=== PATIENT | female | born 1965 | race Caucasian/White ===

== ENCOUNTER 2016-11-23 04:04 | Emergency (ER) ==
[2016-11-23 04:31] LABS: MANUAL DIFF NEEDED? NO
[2016-11-23 04:34] LABS: BASO% 0.9 % (0.0-0.8); EOS# 0.29 X1000 (0.0-0.7); EOS% 3.9 % (0.0-10.0); HEMATOCRIT 49.3 % (37.0-47.0); HEMOGLOBIN 16.7 g/dL (12.0-16.0); IMM GRAN# 0.04 X1000 (0.0-0.04); IMM GRAN% 0.5 % (0.0-0.5); LYMPH# 2.92 X1000 (1.2-3.4); LYMPH% 38.8 % (20.5-51.1); MCH 32.6 PG (27-31); MCHC 33.9 g/dL (33-37); MCV 96.3 FL (81-99); MONO# 0.84 X1000 (0.11-0.59); MONO% 11.2 % (1.7-9.3); NEUT% 44.7 % (42.2-75.2); PLT 199 X1000 (130-400); RBC 5.12 XMIL (4.2-5.4)
[2016-11-23 04:49] LABS: URINE MICRO REVIEW NEEDED? NO; URINE SOURCE CLEAN CATCH
[2016-11-23 04:51] LABS: ACETAMINOPHEN < 1.2 ug/mL (10-30); AGAP 18; ALBUMIN 4.3 g/dL (3.5-5.0); ALKALINE PHOSPHATASE 124 U/L (32-104); BUN 6 mg/dL (8-22); CALCIUM 9.5 mg/dL (8.8-10.2); CHLORIDE 96 mmol/L (98-107); COSMO 273; GOT 82 U/L (10-30); GPT 72 U/L (10-36); POTASSIUM 4.1 mmol/L (3.5-5.1); SODIUM 137 mmol/L (136-145); TCO2 23 mmol/L (25-35); TOTAL BILIRUBIN 0.66 mg/dL (0.20-1.00); TOTAL PROTEIN 7.5 g/dL (6.3-8.3)
[2016-11-23 04:53] LABS: BILIRUBIN URINE NEGATIVE (NEGATIVE); BLOOD URINE NEGATIVE (NEGATIVE); GLUCOSE URINE NEGATIVE (NEGATIVE); LEUKOCYTES URINE MODERATE (NEGATIVE); NITRITE URINE NEGATIVE (NEGATIVE); PROTEIN URINE NEGATIVE (NEGATIVE); UROBILINOGEN URINE NORMAL (NORMAL)
[2016-11-23 05:01] LABS: UR AMPHETAMINES QUAL NONE DETECTED (NONE DETECT); UR BARBITUATES QUAL NONE DETECTED (NONE DETECT); UR BENZODIAZEPIN QUAL NONE DETECTED (NONE DETECT); UR CANNABINOIDS QUAL NONE DETECTED (NONE DETECT); UR COCAINE QUAL NONE DETECTED (NONE DETECT); UR METHADONE QUAL NONE DETECTED (NONE DETECT); UR OPIATES QUAL NONE DETECTED (NONE DETECT); UR OXYCODONE QUAL NONE DETECTED (NONE DETECT); UR PCP QUAL NONE DETECTED (NONE DETECT)
[2016-11-23] MEDS ORDERED: ATIVAN PO ONE (05:04)
[2016-11-23] MEDS ORDERED: NICODERM PATCH TD ONE (05:04)
[2016-11-23 05:06] LABS: COLOR YELLOW; SP GRAVITY URINE 1.004; TURBIDITY URINE CLEAR (CLEAR); UR EPITHELIAL CELLS <10 /HPF (<10); URINE BACTERIA 2+ /HPF; URINE CULTURE NEEDED? YES; URINE RBC <10 /HPF (<10)
--- NOTE | 2016-11-23 05:08 | PROVIDER DOCUMENTATION ---
HPI-Psychological Disorder - General Source: patient <Mike Schumacher - Last Filed: 11/23/16 05:04> <Praveen Barber - Last Filed: 11/23/16 14:56> - General Chief Complaint: Psych Stated Complaint: depression Time Seen by Provider: 11/23/16 04:06 Allergies/Adverse Reactions: Patient Allergies Allergy/AdvReac Type Severity Reaction Status Date / Time Penicillins Allergy Intermediate ITCHING Verified 11/23/16 04:40 morphine AdvReac Mild NAUSEA/VOMI Verified 11/23/16 04:40 TING Home Medications: Home Medication List Medication Instructions Recorded Confirmed Last Taken Type No Home Medications 11/23/16 11/23/16 Unknown History - History of Present Illness-Psych Nature of Presenting Problem: pt has been feeliing depressed and expressed suicidal ideation when she called a suicide hotline earlier [facility]. She admits to drinking three 40 OZ beers daily. She states she has had a hx of depression since 2002. (Mike Schumacher) Review of Systems - Adult - REVIEW OF SYSTEMS - ADULT Constitutional: denies: chills, fever Eyes: denies: discharge Ears, Nose, Mouth & Throat: denies: ear pain, sinus problem, throat pain Cardiovascular: denies: chest pain, edema, palpitations Respiratory: denies: cough, shortness of breath, wheezing Gastrointestinal: denies: abdominal pain, diarrhea, nausea, vomiting Genitourinary: denies: dysuria, frequency Musculoskeletal: reports: back pain (low back) Integumentary: denies: rash Neurological: denies: headache/migraines, numbness Psychiatric: reports: see HPI Endocrine: reports: no symptoms reported Hematologic/Lymphatic: reports: no symptoms reported Allergic/Immunologic: reports: no symptoms reported All Other Systems: Reviewed and Negative <Mike Schumacher - Last Filed: 11/23/16 05:04> - REVIEW OF SYSTEMS - ADULT Constitutional: denies: chills, fever Eyes: denies: discharge, blurred vision Ears, Nose, Mouth & Throat: denies: ear discharge, sinus problem, throat swelling Cardiovascular: denies: chest pain, irregular heart rate, PND Respiratory: denies: chronic cough, cough, shortness of breath Gastrointestinal: denies: abdominal pain, constipation, diarrhea, nausea, vomiting Genitourinary: denies: discharge, frequent UTI's Musculoskeletal: denies: bone pain, joint swelling Integumentary: denies: hives, itching, rash Neurological: denies: numbness, seizure, tremors Psychiatric: reports: anti-depressant use, alcohol/drug dependence, suicidal thoughts Endocrine: denies: goiter, cold intolerance, heat intolerance Hematologic/Lymphatic: denies: low blood count, lymphedema Allergic/Immunologic: denies: eczema, frequent infections, hives <Praveen Barber - Last Filed: 11/23/16 14:56> Past History - Adult - PAST MEDICAL HISTORY-ADULT Review of Records: reports: Old Records Reviewed, Nursing Assessment Review, Medications Reviewed, Social history reviewed & non-contributory. - FAMILY HISTORY Family History: reviewed, not pertinent - SOCIAL HISTORY Smoking: greater than 1 pack/day Substance Use: alcohol Alcohol Use Frequency: every day Living Situation: family <Mike Schumacher - Last Filed: 11/23/16 05:04> - PAST MEDICAL HISTORY-ADULT Review of Records: reports: Nursing Assessment Review, Medications Reviewed <Praveen Barber - Last Filed: 11/23/16 14:56> Physical Exam-Psych Focus - Physical Exam-Psych Initial Vital Signs Reviewed: Yes Appearance: appropriate appearance, appropriate insight, neat, no apparent distress, no memory impairment, alert Neurological: alert, normal mood/affect, calm, etcher enameling II-XII nml as tested, oriented x 3 Behavior/Eye Contact/Speech: cooperative, good eye contact, normal speech Thoughts/Hallucinations: normal thought pattern, no apparent hallucination HENMT: normocephalic/atraumatic, pharynx normal Neck: non-tender, full range of motion, supple, normal inspection Respiratory: chest non-tender, lungs clear, normal breath sounds, no pleuratic chest pain, no respiratory distress, no accessory muscle use Cardiovascular: regular rate, rhythm, no edema, no murmur Abdominal Exam: normal bowel sounds, non tender, soft, no organomegaly, no pulsatile mass Back Exam: normal inspection, no CVA tenderness, no vertebral tenderness Extremity: non-tender, no pedal edema, no calf tenderness Integumentary: normal color, normal turgor, warm/dry <Mike Schumacher - Last Filed: 11/23/16 05:04> - Physical Exam-Psych Initial Vital Signs Reviewed: Yes Appearance: appropriate appearance, appropriate insight, neat, no apparent distress, no memory impairment, denies illness, alert, anxious Neurological: alert, normal mood/affect, calm, etcher enameling II-XII nml as tested, oriented x 3 Behavior/Eye Contact/Speech: cooperative, good eye contact, normal speech Thoughts/Hallucinations: normal thought pattern, no apparent hallucination HENMT: normocephalic/atraumatic, moist mucous membranes, normal ENT inspection Neck: non-tender, full range of motion, supple, normal inspection Respiratory: chest non-tender, lungs clear, normal breath sounds, no pleuratic chest pain, no respiratory distress, no accessory muscle use Cardiovascular: normal peripheral pulses, regular rate, rhythm, no edema, no gallop, no JVD, no murmur Abdominal Exam: normal bowel sounds, non tender, soft, no organomegaly, no pulsatile mass Lymphatic: no adenopathy Back Exam: normal inspection, no CVA tenderness, no vertebral tenderness Extremity: normal range of motion, non-tender <Praveen Barber - Last Filed: 11/23/16 14:56> Progress <Mike Schumacher - Last Filed: 11/23/16 05:04> - REASSESSMENT Reassessment #2 Time Reassessed: 14:55 (psych called and informed us that they would treat her outpatient) Status: improving (seen by psych and they will handle her outpatient) <Praveen Barber - Last Filed: 11/23/16 14:56> - PLAN OF CARE/RESULTS Progress/Plan/Lab Results: Laboratory Tests 11/23/16 11/23/16 11/23/16 04:12 04:12 04:12 WBC 7.52 RBC 5.12 Hgb 16.7 H Hct 49.3 H MCV 96.3 MCH 32.6 H MCHC 33.9 RDW Std Deviation 14.8 H Plt Count 199 MPV 10.0 Immature Gran % (Auto) 0.5 Neut % (Auto) 44.7 Lymph % (Auto) 38.8 Dixon % (Auto) 11.2 H Eos % (Auto) 3.9 Baso % (Auto) 0.9 H Immature Gran # (Auto) 0.04 Neut # (Auto) 3.36 Lymph # (Auto) 2.92 Dixon # (Auto) 0.84 H Eos # (Auto) 0.29 Baso # (Auto) 0.07 Sodium 137 Potassium 4.1 Chloride 96 L Carbon Dioxide 23 L Anion Gap 18 BUN 6 L Creatinine 0.6 Estimated GFR/1.73 m2 > 60 BUN/Creatinine Ratio 10 Glucose 126 H Calculated Osmolality 273 Calcium 9.5 Total Bilirubin 0.66 AST 82 H ALT 72 H Alkaline Phosphatase 124 H Total Protein 7.5 Albumin 4.3 Globulin 3.2 Albumin/Globulin Ratio 1.3 Vitamin B12 TSH Free T4 Urine Source Urine Color Urine Turbidity Urine pH Ur Specific [place] Urine Protein Ur Glucose (Stick) Ur Ketones (Stick) Urine Blood Urine Nitrite Urine Bilirubin Urobilinogen Dipstick Urine Leukocytes Urine WBC (Auto) Urine RBC (Auto) U Epithel Cells (Auto) Urine Bacteria (Auto) Urine Test Salicylates < 3.00 L Urine Opiates Screen Ur Oxycodone Screen Ur Methadone, Qual Acetaminophen < 1.2 L Ur Barbiturates Screen Ur Phencyclidine Scrn Ur Amphetamines Screen U Benzodiazepines Scrn Urine Cocaine Screen U Cannabinoids Screen Plasma/Serum Ethyl Alc 269 H 11/23/16 11/23/16 11/23/16 04:12 04:43 04:43 WBC RBC Hgb Hct MCV MCH MCHC RDW Std Deviation Plt Count MPV Immature Gran % (Auto) Neut % (Auto) Lymph % (Auto) Dixon % (Auto) Eos % (Auto) Baso % (Auto) Immature Gran # (Auto) Neut # (Auto) Lymph # (Auto) Dixon # (Auto) Eos # (Auto) Baso # (Auto) Sodium Potassium Chloride Carbon Dioxide Anion Gap BUN Creatinine Estimated GFR/1.73 m2 BUN/Creatinine Ratio Glucose Calculated Osmolality Calcium Total Bilirubin AST ALT Alkaline Phosphatase Total Protein Albumin Globulin Albumin/Globulin Ratio Vitamin B12 575 TSH 5.10 H Free T4 1.14 Urine Source CLEAN CATCH Urine Color YELLOW Urine Turbidity CLEAR Urine pH 5.0 Ur Specific [place] 1.004 Urine Protein NEGATIVE Ur Glucose (Stick) NEGATIVE Ur Ketones (Stick) NEGATIVE Urine Blood NEGATIVE Urine Nitrite NEGATIVE Urine Bilirubin NEGATIVE Urobilinogen Dipstick NORMAL Urine Leukocytes MODERATE A Urine WBC (Auto) 10-20 A Urine RBC (Auto) <10 U Epithel Cells (Auto) <10 Urine Bacteria (Auto) 2+ Urine Test NEGATIVE Salicylates Urine Opiates Screen Ur Oxycodone Screen Ur Methadone, Qual Acetaminophen Ur Barbiturates Screen Ur Phencyclidine Scrn Ur Amphetamines Screen U Benzodiazepines Scrn Urine Cocaine Screen U Cannabinoids Screen Plasma/Serum Ethyl Alc 11/23/16 11/23/16 11/23/16 04:43 08:45 13:19 WBC RBC Hgb Hct MCV MCH MCHC RDW Std Deviation Plt Count MPV Immature Gran % (Auto) Neut % (Auto) Lymph % (Auto) Dixon % (Auto) Eos % (Auto) Baso % (Auto) Immature Gran # (Auto) Neut # (Auto) Lymph # (Auto) Dixon # (Auto) Eos # (Auto) Baso # (Auto) Sodium Potassium Chloride Carbon Dioxide Anion Gap BUN Creatinine Estimated GFR/1.73 m2 BUN/Creatinine Ratio Glucose Calculated Osmolality Calcium Total Bilirubin AST ALT Alkaline Phosphatase Total Protein Albumin Globulin Albumin/Globulin Ratio Vitamin B12 TSH Free T4 Urine Source Urine Color Urine Turbidity Urine pH Ur Specific [place] Urine Protein Ur Glucose (Stick) Ur Ketones (Stick) Urine Blood Urine Nitrite Urine Bilirubin Urobilinogen Dipstick Urine Leukocytes Urine WBC (Auto) Urine RBC (Auto) U Epithel Cells (Auto) Urine Bacteria (Auto) Urine Test Salicylates Urine Opiates Screen NONE DETECTED Ur Oxycodone Screen NONE DETECTED Ur Methadone, Qual NONE DETECTED Acetaminophen Ur Barbiturates Screen NONE DETECTED Ur Phencyclidine Scrn NONE DETECTED Ur Amphetamines Screen NONE DETECTED U Benzodiazepines Scrn NONE DETECTED Urine Cocaine Screen NONE DETECTED U Cannabinoids Screen NONE DETECTED Plasma/Serum Ethyl Alc 174 H 78 H Orders Category Date Time Status ACETAMINOPHEN [TDM] Stat Lab 11/23/16 04:12 Completed ALCOHOL BLOOD Stat Lab 11/23/16 04:12 Completed ALCOHOL BLOOD Stat Lab 11/23/16 08:45 Completed CBC WITH ELECTRONIC DIFF [HEME] Stat Lab 11/23/16 04:12 Completed COMPREHENSIVE METABOLIC PANEL [CHEM] Stat Lab 11/23/16 04:12 Completed ETOH [ALCOHOL BLOOD] Stat Lab 11/23/16 13:19 Completed FREE T4 Stat Lab 11/23/16 04:12 Completed TEST-URINE [PREG] Stat Lab 11/23/16 04:43 Completed SALICYLATES [TDM] Stat Lab 11/23/16 04:12 Completed TSH Stat Lab 11/23/16 04:12 Completed URINALYSIS W/POSS RFLX CULT [URINALYSIS] Stat Lab 11/23/16 04:43 Completed URINE CULTURE [RM] Routine Lab 11/23/16 06:26 Received URINE DRUG SCREEN Stat Lab 11/23/16 04:43 Completed VITAMIN B12 Stat Lab 11/23/16 04:12 Completed Lorazepam [Ativan] Med 11/23/16 05:04 Discontinued 2 mg PO NOW ONE Nicotine Patch [Nicoderm Patch] Med 11/23/16 05:04 Discontinued 21 mg TD NOW ONE Water, Sterile Inj [Sterile Water Inj] Med 11/23/16 05:42 Discontinued 1.2 ml INJ NOW ONE Ziprasidone [Geodon] Med 11/23/16 05:42 Discontinued 20 mg IM NOW ONE EKG [EKG] Stat Ther 11/23/16 05:51 Draft Vital Signs Temp Pulse Resp BP Pulse Ox 11/23/16 10:52 99 H 18 123/72 97 11/23/16 07:55 98.5 F 100 H 18 134/74 97 11/23/16 04:17 98.5 F 95 H 20 139/88 97 Penicillins Allergy (Intermediate, Verified 11/23/16 04:40) ITCHING morphine Adverse Reaction (Mild, Verified 11/23/16 04:40) NAUSEA/VOMITING No Home Medications 11/23/16 I&O 11/22/16 11/23/16 11/24/16 06:59 06:59 06:59 Output Total 200 Balance -200 Laboratory 11/23/16 11/23/16 11/23/16 13:19 08:45 04:43 WBC RBC Hgb Hct MCV MCH MCHC RDW Std Deviation Plt Count MPV Immature Gran % (Auto) Neut % (Auto) Lymph % (Auto) Dixon % (Auto) Eos % (Auto) Baso % (Auto) Immature Gran # (Auto) Neut # (Auto) Lymph # (Auto) Dixon # (Auto) Eos # (Auto) Baso # (Auto) Sodium Potassium Chloride Carbon Dioxide Anion Gap BUN Creatinine Estimated GFR/1.73 m2 BUN/Creatinine Ratio Glucose Calculated Osmolality Calcium Total Bilirubin AST ALT Alkaline Phosphatase Total Protein Albumin Globulin Albumin/Globulin Ratio Vitamin B12 TSH Free T4 Urine Source Urine Color Urine Turbidity Urine pH Ur Specific [place] Urine Protein Ur Glucose (Stick) Ur Ketones (Stick) Urine Blood Urine Nitrite Urine Bilirubin Urobilinogen Dipstick Urine Leukocytes Urine WBC (Auto) Urine RBC (Auto) U Epithel Cells (Auto) Urine Bacteria (Auto) Urine Test Salicylates Urine Opiates Screen NONE DETECTED Ur Oxycodone Screen NONE DETECTED Ur Methadone, Qual NONE DETECTED Acetaminophen Ur Barbiturates Screen NONE DETECTED Ur Phencyclidine Scrn NONE DETECTED Ur Amphetamines Screen NONE DETECTED U Benzodiazepines Scrn NONE DETECTED Urine Cocaine Screen NONE DETECTED U Cannabinoids Screen NONE DETECTED Plasma/Serum Ethyl Alc 78 H 174 H 11/23/16 11/23/16 11/23/16 04:43 04:43 04:12 WBC RBC Hgb Hct MCV MCH MCHC RDW Std Deviation Plt Count MPV Immature Gran % (Auto) Neut % (Auto) Lymph % (Auto) Dixon % (Auto) Eos % (Auto) Baso % (Auto) Immature Gran # (Auto) Neut # (Auto) Lymph # (Auto) Dixon # (Auto) Eos # (Auto) Baso # (Auto) Sodium Potassium Chloride Carbon Dioxide Anion Gap BUN Creatinine Estimated GFR/1.73 m2 BUN/Creatinine Ratio Glucose Calculated Osmolality Calcium Total Bilirubin AST ALT Alkaline Phosphatase Total Protein Albumin Globulin Albumin/Globulin Ratio Vitamin B12 575 TSH 5.10 H Free T4 1.14 Urine Source CLEAN CATCH Urine Color YELLOW Urine Turbidity CLEAR Urine pH 5.0 Ur Specific [place] 1.004 Urine Protein NEGATIVE Ur Glucose (Stick) NEGATIVE Ur Ketones (Stick) NEGATIVE Urine Blood NEGATIVE Urine Nitrite NEGATIVE Urine Bilirubin NEGATIVE Urobilinogen Dipstick NORMAL Urine Leukocytes MODERATE A Urine WBC (Auto) 10-20 A Urine RBC (Auto) <10 U Epithel Cells (Auto) <10 Urine Bacteria (Auto) 2+ Urine Test NEGATIVE Salicylates Urine Opiates Screen Ur Oxycodone Screen Ur Methadone, Qual Acetaminophen Ur Barbiturates Screen Ur Phencyclidine Scrn Ur Amphetamines Screen U Benzodiazepines Scrn Urine Cocaine Screen U Cannabinoids Screen Plasma/Serum Ethyl Alc 11/23/16 11/23/16 11/23/16 04:12 04:12 04:12 WBC 7.52 RBC 5.12 Hgb 16.7 H Hct 49.3 H MCV 96.3 MCH 32.6 H MCHC 33.9 RDW Std Deviation 14.8 H Plt Count 199 MPV 10.0 Immature Gran % (Auto) 0.5 Neut % (Auto) 44.7 Lymph % (Auto) 38.8 Dixon % (Auto) 11.2 H Eos % (Auto) 3.9 Baso % (Auto) 0.9 H Immature Gran # (Auto) 0.04 Neut # (Auto) 3.36 Lymph # (Auto) 2.92 Dixon # (Auto) 0.84 H Eos # (Auto) 0.29 Baso # (Auto) 0.07 Sodium 137 Potassium 4.1 Chloride 96 L Carbon Dioxide 23 L Anion Gap 18 BUN 6 L Creatinine 0.6 Estimated GFR/1.73 m2 > 60 BUN/Creatinine Ratio 10 Glucose 126 H Calculated Osmolality 273 Calcium 9.5 Total Bilirubin 0.66 AST 82 H ALT 72 H Alkaline Phosphatase 124 H Total Protein 7.5 Albumin 4.3 Globulin 3.2 Albumin/Globulin Ratio 1.3 Vitamin B12 TSH Free T4 Urine Source Urine Color Urine Turbidity Urine pH Ur Specific [place] Urine Protein Ur Glucose (Stick) Ur Ketones (Stick) Urine Blood Urine Nitrite Urine Bilirubin Urobilinogen Dipstick Urine Leukocytes Urine WBC (Auto) Urine RBC (Auto) U Epithel Cells (Auto) Urine Bacteria (Auto) Urine Test Salicylates < 3.00 L Urine Opiates Screen Ur Oxycodone Screen Ur Methadone, Qual Acetaminophen < 1.2 L Ur Barbiturates Screen Ur Phencyclidine Scrn Ur Amphetamines Screen U Benzodiazepines Scrn Urine Cocaine Screen U Cannabinoids Screen Plasma/Serum Ethyl Alc 269 H (Praveen Barber) Departure <Mike Schumacher - Last Filed: 11/23/16 05:04> - Departure Time of Disposition Order: 14:56 Certified Medical Emergency: Emergent <Praveen Barber - Last Filed: 11/23/16 14:56> - Departure DIAGNOSIS: AA (alcohol abuse), Suicidal ideation Depression Qualifiers: Depression Type: unspecified Qualified Code(s): F32.9 - Major depressive disorder, single episode, unspecified Disposition: HOME 01 Condition: Stable Additional Instructions: ED Follow Up Instructions: You have been treated by a care provider in the Emergency Department. These instructions are being provided to you so you can have an understanding of how to care for yourself upon discharge. Upon discharge from the Emergency Department, you are responsible for making arrangements for follow-up care by a physician of your choice. Take all prescribed medications as directed. Return to the Emergency Department immediately for any new or worsening symptoms. You may call the Physician Referral phone number at [phone] to obtain a list of Physicians who are taking new patients. Physician Attestation
[2016-11-23 05:09] LABS: FREE T4 1.14 ng/dL (0.93-1.70)
[2016-11-23] MEDS ORDERED: GEODON IM ONE (05:42)
[2016-11-23] MEDS ORDERED: STERILE WATER INJ. INJ ONE (05:42)
--- NOTE | 2016-11-23 06:06 | EKG Report ---
Test Performed on : 11/23/2016 05:57:53 AM Test Reason : cp Blood Pressure : / mmHG Vent. Rate : 092 BPM Atrial Rate : 092 BPM P-R Int : 160 ms QRS Dur : 078 ms QT Int : 384 ms P-R-T Axes : 068 -18 045 degrees QTc Int : 474 ms Normal sinus rhythm. Normal ECG No previous ECGs available Unconfirmed Result
[2016-11-23 15:27] VITALS: BP 125/95
== END 2016-11-23 15:35 | disposition home or self-care (01) ==
LOC: EDBD → SUPCPDRO 04:04 → ED 04:04
DX: F32.9 Major depressive disorder, single episode, unspecified (principal); R45.851 Suicidal ideations; F10.10 Alcohol abuse, uncomplicated; M54.5 Low back pain; F17.210 Nicotine dependence, cigarettes, uncomplicated
CPT/HCPCS: 80053; 81001; 81025; 82607; 84439; 84443; 85025; 87088; 93005; G0480; J3486; 80320; 80324; 80329; 80345; 80346; 80349; 80353; 80358; 80361; 80365; 83992